=== PATIENT | male | born 1995 | race Caucasian/White ===

== ENCOUNTER 2016-06-07 09:23 | Observation (INO) | payer BC ==
[~2016-06-07] VITALS: Ht 203.2 cm; Wt 127.4 kg
--- NOTE | 2016-06-07 10:32 | DIAGNOSTIC IMAGING REPORT ---
KUB CLINICAL HISTORY: swallowed retainer COMPARISON STUDY: No previous studies for comparison. FINDINGS: There is a radiopaque wire-like metallic density projected over the left L2 transverse process. This is consistent with the history of a swallowed dental retainer. This is likely positioned within a small bowel loop. There is no pathologic bowel dilatation. No free air is visualized in the supine study. IMPRESSION: Wire-like metallic foreign body projected over the L2 level. This is likely positioned within small bowel. Electronically signed by: Naif Swain M.D. 06/07/2016 10:31 AM Dictated Date/Time: 06/07/2016 10:30 AM
--- NOTE | 2016-06-07 10:41 | DIAGNOSTIC IMAGING REPORT ---
TWO VIEW CHEST CLINICAL HISTORY: Foreign body ingestion. FINDINGS: PA and lateral chest radiographs are obtained. No prior studies are available for comparison at the time of dictation. The cardiomediastinal silhouette is unremarkable. The lungs and pleural spaces are clear. There is no pneumothorax. The bony thorax appears intact. No radiodense foreign body is identified. IMPRESSION: 1. No active disease in the chest. 2. No radiodense foreign body is identified. Electronically signed by: Babatunde Hernandes M.D. 06/07/2016 10:39 AM Dictated Date/Time: 06/07/2016 10:38 AM
--- NOTE | 2016-06-07 11:11 | History and Physical ---
History & Physical Date & Time of Service: Jun 07, 2016 at 11:06 Chief Complaint: Swallowed Retainer Primary Care Physician: Cory Garcia DO History of Present Illness Source: patient 21 yr old man who swallowed his retainer. Had a sharp pain mid chest afterwards which has now resolved. No abdominal pain or nausea currently. Xray shows it has already passed into small intestine. No free air. Past Medical/Surgical History Medical Problems: (1) Pharyngitis Status: Resolved Family History No pertinent family history Social History Smoking Status: Never Smoker Allergies Coded Allergies: No Known Allergies (Unverified , 06/07/16) Home Medications No Active Prescriptions or Reported Meds Review of Systems ROS otherwise negative x 10 Physical Exam Vital Signs Date Time Temp Pulse Resp B/P Pulse Ox O2 Delivery O2 Flow Rate FiO2 06/07/16 09:28 36.3 83 18 173/83 95 Room Air General Appearance: WD/WN, no apparent distress Head: normocephalic Eyes: normal inspection ENT: normal ENT inspection Neck: supple, trachea midline Respiratory/Chest: lungs clear, normal breath sounds, no respiratory distress Cardiovascular: regular rate, rhythm, no JVD, no murmur Abdomen/GI: normal bowel sounds, non tender, soft, no organomegaly Back: normal inspection Extremities/Musculoskelatal: no pedal edema Neurologic/Psych: alert, normal mood/affect Skin: normal color, warm/dry Diagnostics Laboratory Results Results Past 24 Hours Test 06/07/16 10:53 Range/Units Diagnostic Radiology KUB: Wire-like metallic foreign body projected over the L2 level. This is likely positioned within small bowel. No free air. Impression Assessment and Plan 21 yr old who swallowed his retainer. Dimension: 1-1.5 inches, under 1 cm in width as per mother (who looked up on website). Currently, it is in the small bowel and he has no signs of perforation. Options discussed - surgery now vs waiting to see if it passes. If it causes perforation or obstruction, will need surgery at that time to remove it / repair injury. Risks/ benefits of both algorithims discussed. They are comfortable with waiting to see if it passes. Will place in observation, recheck AXR in am. OK to have regular diet to try and stimulate passage.
[2016-06-07] MEDS ORDERED: ONDANSETRON INJ 2 MG/ML 2 ML VIAL IV PRN (11:15)
[2016-06-07] MEDS ORDERED: ACETAMINOPHEN 325 MG TAB PO PRN (11:15)
[2016-06-07 11:25] LABS: HEMATOCRIT 41.1 % (42-52); MEAN CELL VOLUME 86.5 fL (80-100); MEAN CORPUSCULAR HEMOGLOBIN 30.7 pg (25-34); MEAN CORPUSCULAR HGB CONC 35.5 g/dl (32-36); MEAN PLATELET VOLUME 10.8 fL (7.4-10.4); PLATELET COUNT 168 K/uL (130-400); RED BLOOD COUNT 4.75 M/uL (4.7-6.1); WHITE BLOOD COUNT 3.55 K/uL (4.8-10.8)
[2016-06-07 11:52] LABS: BUN/CREATININE RATIO 10.5 (10-20); CALCIUM 8.8 mg/dl (8.5-10.1); CREATININE 0.97 mg/dl (0.60-1.40)
[2016-06-07] MEDS ORDERED: IV FLUIDS COMPLETED PRN (12:15)
[2016-06-07 13:33] VITALS: BP 140/92; PULSE 67; TEMP 36.3; O2SAT 98; Ht 203.2 cm; Wt 127.4 kg
[2016-06-07 13:43] VITALS: BP 141/87; PULSE 62; TEMP 36.5; O2SAT 98
[2016-06-07 13:55] VITALS: O2SAT 98
[2016-06-07] MEDS ORDERED: PNEUMOCOCCAL POLYSACCHARIDES 25 MCG/0.5 ML VIAL/SYR IM. ONE (14:15)
[2016-06-07] MEDS ORDERED: PNEUMOCOCCAL ADMINISTRATION CHARGE ONE (14:15)
[2016-06-07 14:48] VITALS: BP 171/78; PULSE 88; TEMP 36.7; O2SAT 92
[2016-06-07 16:07] VITALS: BP 150/83
--- NOTE | 2016-06-07 16:49 | EMERGENCY ROOM VISIT NOTE ---
History Report prepared by Adiibstiven: Daniel Denton Under the Supervision of: Dr. Babatunde Contreras M.D. First contact with patient: 09:53 Chief Complaint: FOREIGNBODY ANY BODY PART Stated Complaint: SWALLOWED RETAINER History of Present Illness The patient is a 21 year old male who presents to the Emergency Room after acutely swallowing his lower dental retainer approximately 75 minutes [employer]. The patient states that the retainer was made of a cement-like material and a metal wire. The patient's retainer was loose on the left side for several months. He was eating nuts this morning when the retainer broke off completely and he swallowed it. The patient thought he felt a poking sensation in his epigastric area earlier today, but denies any pain. He has had some applesauce since swallowing the retainer, which he believes passed through the esophagus. The patient has not vomited. Source of History: patient Onset: 75 minutes [employer] Position: other (upper GI) Symptom Intensity: no associated pain Quality: other (swallowed retainer) Timing: other (acute) Associated Symptoms: No vomiting Review of Systems See HPI for pertinent positives & negatives. A total of 10 systems reviewed and were otherwise negative. Past Medical & Surgical Medical Problems: (1) Foreign body (2) Pharyngitis Family History No pertinent family history Social History Smoking Status: Never Smoker Housing Status: lives with family Current/Historical Medications No Active Prescriptions or Reported Meds Allergies Coded Allergies: No Known Allergies (Unverified , 06/07/16) Physical Exam Vital Signs Date Time Temp Pulse Resp B/P Pulse Ox O2 Delivery O2 Flow Rate FiO2 06/07/16 09:28 36.3 83 18 173/83 95 Room Air Physical Exam GENERAL: Patient is in no acute distress. HEENT: No acute trauma, normocephalic atraumatic, mucous membranes moist, no nasal congestion, no scleral icterus. NECK: No stridor, no adenopathy, no meningismus, trachea is midline. LUNGS: Clear to auscultation bilaterally, no wheeze, no rhonchi, breath sounds equal. HEART: Without murmurs gallops or rubs, regular rate and rhythm. ABDOMEN: Soft, nontender, bowel sounds positive, no hernias, no peritonitis. EXTREMITIES: No cyanosis or edema, full range of motion of all the joints without pain or difficulty, no signs for acute trauma. NEUROLOGIC: Oriented x 3, no acute motor or sensory deficits, no focal weakness. SKIN: No rash, no jaundice, no diaphoresis. Medical Decision & Procedures ER Provider Diagnostic Interpretation: X-ray results as stated below per interpretation by me and the radiologist: TWO VIEW CHEST CLINICAL HISTORY: Foreign body ingestion. FINDINGS: PA and lateral chest radiographs are obtained. No prior studies are available for comparison at the time of dictation. The cardiomediastinal silhouette is unremarkable. The lungs and pleural spaces are clear. There is no pneumothorax. The bony thorax appears intact. No radiodense foreign body is identified. IMPRESSION: 1. No active disease in the chest. 2. No radiodense foreign body is identified. Electronically signed by: Babatunde Hernandes M.D. 06/07/2016 10:39 AM Dictated Date/Time: 06/07/2016 10:38 AM KUB CLINICAL HISTORY: swallowed retainer COMPARISON STUDY: No previous studies for comparison. FINDINGS: There is a radiopaque wire-like metallic density projected over the left L2 transverse process. This is consistent with the history of a swallowed dental retainer. This is likely positioned within a small bowel loop. There is no pathologic bowel dilatation. No free air is visualized in the supine study. IMPRESSION: Wire-like metallic foreign body projected over the L2 level. This is likely positioned within small bowel. Electronically signed by: Naif Swain M.D. 06/07/2016 10:31 AM Dictated Date/Time: 06/07/2016 10:30 AM Laboratory Results 06/07/16 11:05 06/07/16 11:05 Test 06/07/16 11:05 Red Blood Count 4.75 M/uL (4.7-6.1) Mean Corpuscular Volume 86.5 fL (80-100) Mean Corpuscular Hemoglobin 30.7 pg (25-34) Mean Corpuscular Hemoglobin Concent 35.5 g/dl (32-36) RDW Standard Deviation 43.2 fL (36.4-46.3) RDW Coefficient of Variation 13.6 % (11.5-14.5) Mean Platelet Volume 10.8 fL (7.4-10.4) Anion Gap 8.0 mmol/L (3-11) Est Creatinine Clear Calc Drug Dose 185.0 ml/min Estimated GFR () 128.8 Estimated GFR (Non- 111.1 BUN/Creatinine Ratio 10.5 (10-20) Calcium Level 8.8 mg/dl (8.5-10.1) Laboratory results reviewed by me. ED Course 0954: The patient was evaluated in room A8. A complete history and physical exam was performed. 1036: Discussed the case with Dr. Horowitz, Surgeon. She will see the patient in the ED and recommends hospitalization for observation. She asked me to contact medicine. 1052: [facility] He recommends I order basic labs in case the patient requires surgery. 1104: Dr. Horowitz informed me that she will handle the case herself and no longer needs the hospitalists to see the patient. Medical Decision Differential diagnosis includes esophageal foreign body, gastric foreign body, intestinal foreign body, bowel perforation. The patient presents with concerns for a swallowed retainer. He has no pain or symptoms right now. Chest x-ray does not show any foreign body within the esophagus or upper abdomen. KUB demonstrates a metallic appearing structure consistent with a retainer within the proximal small bowel. I spoke with the on-call surgeon. Admission/observation was felt warranted. Bowel perforation was a concern. The patient may pass things naturally however , if not, he may require a surgical procedure. The patient and his mother are aware. Consults Time Called: 1030 Consulting Physician: Dr. Horowitz, Surgeon Returned Call: [phone]: Discussed the case with Dr. Horowitz, Surgeon. She will see the patient in the ED and recommends hospitalization for observation. She asked me to contact medicine. Additional Consults: Time Called: 1040 Consulted Physician: Dr. Goldberg[facility] Returned Call: 1052 Additional Comments: 1052: [facility]. Goldberg[facility] He recommends I order basic labs in case the patient requires surgery. Impression Primary Impression: Foreign body in intestine Scribe Attestation The scribe's documentation has been prepared under my direction and personally reviewed by me in its entirety. I confirm that the note above accurately reflects all work, treatment, procedures, and medical decision making performed by me. Departure Information Dispostion Being Evaluated By Surgeon Prescriptions No Active Prescriptions or Reported Meds Referrals Cory Garcia DO (PCP) Patient Instructions My [facility]
[2016-06-07 23:12] VITALS: BP 161/99; PULSE 62; TEMP 36.5; O2SAT 97
[2016-06-08 01:16] VITALS: BP 158/78
[2016-06-08 07:00] VITALS: BP 166/92; PULSE 60; TEMP 36.3; O2SAT 99
--- NOTE | 2016-06-08 10:24 | DIAGNOSTIC IMAGING REPORT ---
ABDOMEN 6 VIEWS CLINICAL HISTORY: Swallowed foreign body COMPARISON STUDY: June 07, 2016 FINDINGS: The wire shaped foreign body projects over the central abdomen at the L4 level. This is likely positioned within small bowel. There is no pathologic bowel dilatation. IMPRESSION: The ingested foreign body is visualized within the central abdomen, and is likely located within a small bowel loop. No free air is visualized. Electronically signed by: Naif Swain M.D. 06/08/2016 10:22 AM Dictated Date/Time: 06/08/2016 10:21 AM
--- NOTE | 2016-06-08 10:44 | Surgery Progress Note ---
Surgery Progress Note Date of Service Jun 08, 2016. Subjective Post OP Day: HD # 1 + bowel movement, + diet (regular diet), + feeling well, + flatus, No complaints , No nausea, No vomiting no abdominal pain regular bowel movement at 4 am Objective Vital Signs: Date Time Temp Pulse Resp B/P Pulse Ox O2 Delivery O2 Flow Rate FiO2 06/08/16 07:00 36.3 60 20 166/92 99 Room Air 06/08/16 01:16 158/78 06/07/16 23:30 Room Air 06/07/16 23:12 36.5 62 16 161/99 97 Room Air 06/07/16 20:00 Room Air 06/07/16 16:07 150/83 06/07/16 14:48 36.7 88 16 171/78 92 Room Air 06/07/16 13:55 98 Room Air 06/07/16 13:43 36.5 62 16 141/87 98 Room Air 06/07/16 13:33 36.3 67 16 140/92 98 Room Air 06/07/16 13:23 68 16 140/92 98 06/07/16 12:11 62 14 143/91 100 Room Air 06/07/16 11:16 68 15 138/74 100 Room Air General Appearance: WD/WN, no apparent distress Head: normocephalic, atraumatic Neck: supple Abdomen: non tender, non distended, soft, no organomegaly Extremities: normal range of motion, normal inspection Laboratory Results: Results Past 24 Hours Test 06/07/16 11:05 Range/Units White Blood Count 3.55 4.8-10.8 K/uL Red Blood Count 4.75 4.7-6.1 M/uL Hemoglobin 14.6 14.0-18.0 g/dL Hematocrit 41.1 42-52 % Mean Corpuscular Volume 86.5 80-100 fL Mean Corpuscular Hemoglobin 30.7 25-34 pg Mean Corpuscular Hemoglobin Concent 35.5 32-36 g/dl RDW Standard Deviation 43.2 36.4-46.3 fL RDW Coefficient of Variation 13.6 11.5-14.5 % Platelet Count 168 130-400 K/uL Mean Platelet Volume 10.8 7.4-10.4 fL Sodium Level 142 136-145 mmol/L Potassium Level 4.0 3.5-5.1 mmol/L Chloride Level 105 98-107 mmol/L Carbon Dioxide Level 29 21-32 mmol/L Anion Gap 8.0 3-11 mmol/L Blood Urea Nitrogen 10 7-18 mg/dl Creatinine 0.97 0.60-1.40 mg/dl Est Creatinine Clear Calc Drug Dose 185.0 ml/min Estimated GFR () 128.8 Estimated GFR (Non- 111.1 BUN/Creatinine Ratio 10.5 10-20 Random Glucose 78 70-99 mg/dl Calcium Level 8.8 8.5-10.1 mg/dl Assessment & Plan Retained Foreign Body Small Bowel - vital signs stable - + bowel function - no abdominal pain just some pressure - no nausea or vomiting - tolerating regular diet - Abdominal films this am shows foreign body in the mid abdomen probably in the small bowel no signs of free air. Plan: Plan to discharge patient home today Advised high fiber diet Advised to return to emergency room department if he develops any fever, chills , severe abdominal pain or blood in stools. Patient and mother understood. Follow-up with Dr. Carlos Manuel Mccallum has seen and examined patient agrees with above stated findings and treatment plan.
--- NOTE | 2016-06-08 10:48 | Discharge Instructions ---
Discharge Instructions Admission Reason for Admission: Foreign Body Discharge Discharge Diagnosis / Problem: Foreign Body in small bowel Discharge Goals Goal(s): Decrease discomfort, Specific goals (Passage of foreign body with bowel movements) Activity Recommendations Activity Limitations: resume your previous activity Lifting Limitations: none Exercise/Sports Limitations: none May Resume Sexual Activity: when tolerated Shower/Bathe: no limitations Driving or Machine Use: no limitations . Instructions / Follow-Up Instructions / Follow-Up You can follow-up with Dr. Horowitz on an as needed basis Office number is [phone] if you have any questions or concerns High fiber diet recommended Recommended to monitor stool for any blood Current Hospital Diet Patient's current hospital diet: Regular Diet Discharge Diet Recommended Diet: Regular Diet Pending Studies Studies pending at discharge: no Work Instructions Return To Work: 1 day Lifting Limitations: none Medical Emergencies . Who to Call and When: Medical Emergencies: If at any time you feel your situation is an emergency, please call 911 immediately. . Non-Emergent Contact Non-Emergency issues call your: Primary Care Provider, Surgeon Call Non-Emergent contact if: you have a fever, temperature is above 101, your pain is not controlled, your pain is worsening, your pain is unusual for you . "Provider Documentation" section prepared by Debo Lindsey. VTE Core Measure Inpt VTE Proph given/why not?: Treatment not indicated
[2016-06-08 11:00] VITALS: BP 166/92; PULSE 60; TEMP 36.3; O2SAT 99
--- NOTE | 2016-06-13 11:43 | DISCHARGE SUMMARY ---
ADMITTING DIAGNOSIS: Foreign body in small bowel. DISCHARGE DIAGNOSIS: Same. OPERATION: None. DETAILS OF DISCHARGE SUMMARY: This is a 21-year-old male who swallowed a small metal wire foreign body and after swallowing patient felt sharp chest pain . The patient came to the ED with patient's mom and they did x-ray, KUB showed foreign body located in small bowel. The foreign body looked like thin metal wire the size of about 1" and the patient was admitted to the hospital overnight to observation. This morning we saw the patient and the patient has no abdominal pain, no nausea, no vomiting, passed stool in the morning. The patient tolerated regular diet. OBJECTIVE: VITAL SIGNS: The temperature is 36.3, pulse is 60, respiratory rate is 20, blood pressure is 166/92. O2 saturation 99% on room air. GENERAL: The patient is alert, awake, oriented x3, no distress. HEAD, EYES, EARS, NOSE, AND THROAT: Within normal limitation. NEUROLOGIC EXAMINATION: Intact. NECK: No JVD. CHEST: Bilateral lung sounds clear. HEART: Normal S1, S2. No murmur. ABDOMEN: Soft, no tenderness, no distention. Bowel sounds positive. EXTREMITIES: No edema. PLAN: The patient and patient's mom wanted to go home today and we gave the patient's mom instructions if the patient develops any severe abdominal pain, nausea, vomiting, bloody stool the patient should come back to the hospital ER. Also, watch out patient's stool for any foreign body passed. Otherwise follow up with Dr. Beverly Horowitz in 1 week. They understand. FILIBERTO
== END 2016-06-08 12:20 | disposition home or self-care (01) ==
LOC: ENRESERVDT → ENRESERVTM → C.EDB 09:24 → C.MSN 11:09
PROVIDERS: ADMIT Surgery; ATTEND Surgery
DX: T18.3XXA Foreign body in small intestine, initial encounter (principal); X58.XXXA Exposure to other specified factors, initial encounter